=== PATIENT | male | born 2000 | race Hispanic/Latino ===

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

== ENCOUNTER 2019-02-13 16:25 | Emergency (ER) | payer MEDICAID ==
[2019-02-13] MEDS ORDERED: BISACODYL 10 MG SUPP.RECT RC ONE (17:09)
[2019-02-13] MEDS ORDERED: MAGNESIUM CITRATE 296 ML SOLUTION ONE (17:09)
== END 2019-02-13 17:43 | disposition home or self-care (01) ==
LOC: EDH 16:25
DX: K59.00 Constipation, unspecified (principal); F90.9 Attention-deficit hyperactivity disorder, unspecified type; F84.0 Autistic disorder
CPT/HCPCS: 74018

== ENCOUNTER 2019-03-21 10:18 | Observation (INO) | payer MEDICAID | END 2019-03-22 13:47 | disposition home or self-care (01) | LOC: EDH 10:18 → EDHIP 10:19 → 3AH 16:27 ==

== ENCOUNTER 2019-07-05 20:00 | Emergency (ER) | payer MEDICAID ==
[~2019-07-05 20:00] MED LIST: DOCU-116 PO; GUAN4TAB2 PO; LINA145C PO; NALT50TA PO; PANT20TA12 PO; QUET200T29 PO; TRAZ-187 PO
[2019-07-05] MEDS ORDERED: SULFA/TRIMETHOPRIM 800-160/20 ML ORAL.SUSP UDCUP ONE (21:18)
== END 2019-07-05 22:03 | disposition home or self-care (01) ==
LOC: EDH 20:00
DX: L02.214 Cutaneous abscess of groin (principal); B37.49 Other urogenital candidiasis; F90.9 Attention-deficit hyperactivity disorder, unspecified type; F84.0 Autistic disorder
CPT/HCPCS: 82948